=== PATIENT | female | born 1965 | race Caucasian/White ===

== ENCOUNTER 2019-08-16 17:58 | Emergency (ER) | payer MEDICARE ==
[~2019-08-16] VITALS: Ht 157.5 cm; Wt 100.0 kg
[2019-08-16] MEDS ORDERED: LIDOCAINE HCL/PF 1% 10 MG/ML 5ML VIAL IJ ONE (18:45)
[2019-08-16] MEDS ORDERED: IBUPROFEN 600MG TABLET PO ONE (18:45)
[2019-08-16] MEDS ORDERED: BACITRACIN ZINC OINT UDPKT TOP ONE (18:45)
[2019-08-16] MEDS ORDERED: TETANUS, DIPHTHERIA, PERTUSSIS VAC/PF 0.5ML (>7YR OLD) IM ONE (18:45)
[2019-08-16 19:42] VITALS: BP 130/87
== END 2019-08-16 19:43 | disposition home or self-care (01) ==
LOC: ER 17:58
DX: S61.412A Laceration without foreign body of left hand, initial encounter (principal); W26.0XXA Contact with knife, initial encounter; Y93.89 Activity, other specified; Y92.9 Unspecified place or not applicable; E11.9 Type 2 diabetes mellitus without complications; Z88.0 Allergy status to penicillin; Z88.8 Allergy status to other drugs, medicaments and biological substances; Z90.49 Acquired absence of other specified parts of digestive tract; Z90.710 Acquired absence of both cervix and uterus
CPT/HCPCS: 12001; 90471; 90715; 99283; J3490